=== PATIENT | male | born 1960 | race Caucasian/White ===

== ENCOUNTER 2018-12-22 09:58 | Emergency (ER) | payer MEDICARE, OTHER ==
[2018-12-22] MEDS ORDERED: Aspirin 81 MG Tab.Chew PO ONE (10:17)
--- NOTE | 2018-12-22 10:20 | EDM.PDOC ---
ED HPI GENERAL MEDICAL PROBLEM - General Chief Complaint: Chest Pain Stated Complaint: CHEST PAIN Time Seen by Provider: 12/22/18 10:14 Source of Information: Reports: Patient, Family, RN Notes Reviewed History Limitations: Reports: No Limitations - History of Present Illness INITIAL COMMENTS - FREE TEXT/NARRATIVE: 58-year-old gentleman presents to the emergency department today with complaint of chest pain, he states that chest pain for the last 3 days feels more like a pressure and is constant and always with him does have some radiation into the left shoulder and does feel nauseated no vomiting no shortness of breath no diaphoresis no heart history] he does use tobacco Chest Pain Score (Numeric/FACES): 7 - Related Data Allergies Allergy/AdvReac Type Severity Reaction Status Date / Time No Known Allergies Allergy Verified 12/22/18 10:08 Home Meds: Home Meds Acetaminophen/HYDROcodone [[place] 325-10 MG] 1 tab PO ASDIRECTED PRN 12/22/18 [ History] Cyanocobalamin (Vitamin B12) [Vitamin B12] 1 g PO DAILY 12/22/18 [History] Ezetimibe 10 mg PO DAILY 12/22/18 [History] FLUoxetine HCl [Fluoxetine HCl] 20 mg PO DAILY 12/22/18 [History] Ibuprofen 800 mg PO ASDIRECTED PRN 12/22/18 [History] Venlafaxine HCl [Venlafaxine ER] 150 mg PO BEDTIME 12/22/18 [History] Past Medical History Cardiovascular History: Reports: High Cholesterol Gastrointestinal History: Reports: GERD Musculoskeletal History: Reports: Back Pain, Chronic Psychiatric History: Reports: Anxiety, Depression, PTSD - Past Surgical History Other Musculoskeletal Surgeries/Procedures:: spinal fusion Social & Family History - Tobacco Use Smoking Status *Q: Heavy Tobacco Smoker Years of Tobacco use: 40 Packs/Tins Daily: 1 - Caffeine Use Caffeine Use: Reports: Coffee - Recreational Drug Use Recreational Drug Use: No ED ROS GENERAL - Review of Systems Review Of Systems: See Below Constitutional: Reports: No Symptoms HEENT: Reports: No Symptoms Respiratory: Reports: No Symptoms Cardiovascular: Reports: Chest Pain GI/Abdominal: Reports: Nausea ED EXAM, GENERAL - Physical Exam Exam: See Below Exam Limited By: No Limitations General Appearance: Alert, Mild Distress Throat/Mouth: No Airway Compromise Head: Atraumatic, Normocephalic Neck: Normal Inspection, Supple, Non-Tender, Full Range of Motion Respiratory/Chest: No Respiratory Distress, Lungs Clear, Normal Breath Sounds, No Accessory Muscle Use, Chest Non-Tender Cardiovascular: Regular Rate, Rhythm, No Murmur GI/Abdominal: Soft, Non-Tender Extremities: Normal Inspection, Normal Range of Motion, No Pedal Edema Course - Vital Signs Last Recorded V/S: Last Vital Signs Temp 98.6 F 12/22/18 10:09 Pulse 64 12/22/18 10:50 Resp 10 L 12/22/18 10:50 BP 131/76 12/22/18 10:50 Pulse Ox 99 12/22/18 10:50 - Orders/Labs/Meds Orders: Active Orders 24 hr Category Date Time Status Cardiac Monitoring [RC] .As Directed Care 12/22/18 10:17 Active EKG Documentation Completion [RC] ASDIRECTED Care 12/22/18 10:18 Active EKG 12 Lead [EK] Stat Ther 12/22/18 10:18 Ordered Labs: Laboratory Tests 12/22/18 12/22/18 12/22/18 Range/Units 10:33 10:33 10:33 WBC 9.7 (4.5-11.0) K/uL RBC 5.15 (4.30-5.90) M/uL Hgb 15.2 H (12.0-15.0) g/dL Hct 46.3 (40.0-54.0) % MCV 90 (80-98) fL MCH 30 (27-31) pg MCHC 33 (32-36) % Plt Count 310 (150-400) K/uL Neut % (Auto) 74 H (36-66) % Lymph % (Auto) 18 L (24-44) % [place] % (Auto) 6 (2-6) % Eos % (Auto) 1 L (2-4) % Baso % (Auto) 1 (0-1) % D-Dimer, Quantitative < 100 (0.0-400.0) ng/mL Sodium 141 (140-148) mmol/L Potassium 5.4 H (3.6-5.2) mmol/L Chloride 104 (100-108) mmol/L Carbon Dioxide 31 (21-32) mmol/L Anion Gap 11.4 (5.0-14.0) mmol/L BUN 16 (7-18) mg/dL Creatinine 0.8 (0.8-1.3) mg/dL Est Cr Clr Drug Dosing 99.75 mL/min Estimated GFR (MDRD) > 60 (>60) Glucose 93 (74-106) mg/dL Calcium 9.5 (8.5-10.1) mg/dL Total Bilirubin 0.4 (0.2-1.0) mg/dL AST 20 (15-37) U/L ALT 27 (12-78) U/L Alkaline Phosphatase 76 (46-116) U/L Troponin I < 0.017 (0.000-0.056) ng/mL Total Protein 7.2 (6.4-8.2) g/dL Albumin 3.9 (3.4-5.0) g/dL Globulin 3.3 (2.3-3.5) g/dL Albumin/Globulin Ratio 1.2 (1.2-2.2) Meds: Medications Discontinued Medications Generic Name Dose Route Start Last Admin Trade Name Freq PRN Reason Stop Dose Admin Aspirin 324 mg 12/22/18 10:17 12/22/18 10:21 Aspirin PO 12/22/18 10:18 324 mg ONETIME ONE Administration Al Hydroxide/Mg Hydroxide 15 0 ml 12/22/18 11:05 12/22/18 11:15 ml/ Lidocaine HCl 15 ml PO 12/22/18 11:06 15 ml ONETIME ONE Administration Departure - Departure Time of Disposition: 11:26 Disposition: Home, Self-Care 01 Condition: Fair Clinical Impression: Atypical chest pain Referrals: PCP,None [Primary Care Provider] - Forms: ED Department Discharge Additional Instructions: Continue using her omeprazole for pain control, consider increasing the dose until he returned home and her reevaluated by her primary care, consider EGD in the future, call or return to the emergency department with worsening symptoms - My Orders Last 24 Hours: My Active Orders 12/22/18 10:17 Cardiac Monitoring [RC] .As Directed 12/22/18 10:18 EKG Documentation Completion [RC] ASDIRECTED EKG 12 Lead [EK] Stat - Assessment/Plan Last 24 Hours: My Active Orders 12/22/18 10:17 Cardiac Monitoring [RC] .As Directed 12/22/18 10:18 EKG Documentation Completion [RC] ASDIRECTED EKG 12 Lead [EK] Stat Plan: Assessment Acuity = acute Site and laterality = atypical chest pain Etiology = suspicious for underlying gastroesophageal reflux disease Manifestations = none Location of injury = Home Lab values = CBC, CMP, troponin, d-dimer within normal limits EKG demonstrates normal sinus rhythm chest x-ray shows no acute process Plan He had good relief with a GI cocktail provided he has used Tums and omeprazole the past recommend continue with the medications follow-up primary care upon returning home for further evaluation which might include an EGD This note was dictated using [employer] voice recognition software please call with any questions on syntax or grammar.
[2018-12-22] MEDS ORDERED: Alum Hydrox/Mag Hydrox/Simeth 15 ML, Lidocaine 2% 15 ML PO ONE ×2 (11:05)
--- NOTE | 2018-12-22 11:17 | CRLCR ---
INDICATION: Chest pain COMPARISON: none TECHNIQUE: Two view chest. FINDINGS: The lungs are clear. There is no evidence of pneumothorax. The heart, mediastinum and pulmonary vessels are of normal size. There is no evidence of pleural fluid. IMPRESSION: Negative chest. Dictated by Marc Wallace MD @ 12/22/2018 11:16:17 AM Dictated by: Marc Wallace MD @ 12/22/2018 11:16:27 (Electronically Signed)
== END 2018-12-22 11:32 | disposition home or self-care (01) ==
LOC: JP.ED 09:58
DX: R07.89 Other chest pain (principal); E78.00 Pure hypercholesterolemia, unspecified; K21.9 Gastro-esophageal reflux disease without esophagitis; F32.9 Major depressive disorder, single episode, unspecified; F17.210 Nicotine dependence, cigarettes, uncomplicated; Z79.899 Other long term (current) drug therapy
CPT/HCPCS: 36415; 71046; 80053; 84484; 85025; 85379; 93005; 99285; A9270; 93010; 99284